=== PATIENT | female | born 1945 | race Caucasian/White ===

== ENCOUNTER → 2018-07-27 | Emergency (ER) | payer OTHER ==
[~2018-07-27] VITALS: Ht 152.4 cm; Wt 63.5 kg
[~2018-07-27] MED LIST: ASPIR 8181 MG; DILTIAZEM ER180 M1
== END | disposition left against medical advice (07) ==
LOC: ER 22:21
DX: Z53.20 Procedure and treatment not carried out because of patient's decision for unspecified reasons (principal)